=== PATIENT | male | born 2005 | race Caucasian/White ===

== ENCOUNTER 2024-08-24 12:03 | Emergency (ER) | payer OTHER ==
[~2024-08-24] VITALS: Ht 170.2 cm; Wt 68.0 kg
[2024-08-24 13:16] LABS: BASOPHILS # (AUTO) 0.1 K/UL (0.0-0.2); BASOPHILS % (AUTO) 0.9 % (0.0-2.0); DIFFERENTIAL COMMENT 1; EOSINOPHILS # (AUTO) 0.1 K/uL (0.0-0.7); EOSINOPHILS % (AUTO) 0.6 % (0.0-7.0); HEMATOCRIT 41.2 % (36.7-47.1); HEMOGLOBIN 14.3 g/dL (12.5-16.3); LYMPHOCYTES % (AUTO) 19.7 % (20.5-74.5); MEAN CORPUSCULAR HEMOGLOBIN 30.6 uug (23.8-33.4); MEAN CORPUSCULAR HGB CONC 35 g/dL (32.5-36.3); MEAN CORPUSCULAR VOLUME 88.1 fL (73.0-96.2); MONOCYTES # (AUTO) 1.2 K/uL (0.1-1.30); MONOCYTES % (AUTO) 7.7 % (0-11); NEUTROPHILS % (AUTO) 71.1 % (31.5-64.5); PLATELET COUNT (AUTO) 238 K/uL (152-348); RED BLOOD CELL COUNT(AUTO) 4.67 MIL/uL (4.06-5.63); RED CELL DISTRIBUTION WIDTH 12.8 % (12.1-16.2); WHITE BLOOD COUNT (AUTO) 15.4 K/uL (3.6-10.2)
[2024-08-24 13:22] LABS: CALCIUM 9.4 mg/dL (8.5-10.1); CREATININE 1.1 mg/dL (0.6-1.3)
[2024-08-24] MEDS ORDERED: AMOXICILLIN-CLAVUL 875-125MG TABLET ONE (13:35)
[2024-08-24] MEDS: AMOXICILLIN-CLAVUL 875-125MG TABLET PO ONE (13:40)
[2024-08-24] MEDS ORDERED: ACET1TAB23 PO (14:00)
[2024-08-24] MEDS ORDERED: AMOX600S16 PO (14:00)
[2024-08-24] MEDS ORDERED: ACET120E PO (14:04)
[2024-08-24 14:17] VITALS: BP 122/70; O2SAT 98
== END 2024-08-24 14:18 | disposition home or self-care (01) ==
LOC: ER 12:04
DX: J34.0 Abscess, furuncle and carbuncle of nose (principal); F17.200 Nicotine dependence, unspecified, uncomplicated; Z88.7 Allergy status to serum and vaccine
CPT/HCPCS: 36415; 85025; A4606; A4663